=== PATIENT | female | born 1960 | race African-American/Black ===

== ENCOUNTER 2020-11-29 05:40 | Emergency (ER) | payer MEDICARE, MEDICAID ==
[~2020-11-29] VITALS: Ht 160 cm; Wt 97.1 kg
[2020-11-29] MEDS ORDERED: IOHEXOL-350 100 ML BOTTLE ONE (06:27)
[2020-11-29 06:44] LABS: BASOPHILS % 0.4 % (0.0-2.0); EOSINOPHILS % 0.2 % (0.0-5.0); HEMATOCRIT. 36.3 % (36.0-48.0); HEMOGLOBIN. 12.2 g/dL (12.0-16.0); LYMPHOCYTES % 13.8 % (20.0-50.0); MEAN CORPUSCULAR HEMOGLOBIN 28.5 pg (28.0-32.0); MEAN CORPUSCULAR VOLUME 84.4 fL (81.0-99.0); MEAN PLATELET VOLUME 10.5 fl (7.4-10.4); MONOCYTES % 4.4 % (2.0-8.0); NEUTROPHILS % 81.2 % (40.0-76.0); PLATELET 205 x1000/uL (130-400); RED CELL DISTRIBUTION WIDTH 11.9 % (11.6-14.6)
[2020-11-29 06:53] LABS: CHLORIDE 101 mEq/L (98-107)
[2020-11-29 06:56] LABS: PARTIAL THROMBOPLASTIN TIME 26.3 sec (23.4-31.0); PROTHROMBIN TIME 10.2 sec (9.6-11.0)
[2020-11-29 07:03] LABS: ETHANOL BLOOD < 10 mg/dL; LDL CHOLESTEROL 145 mg/dL (5-100)
[2020-11-29] MEDS ORDERED: ASPIRIN 325MG EC TABLET PO ONE (07:30)
[2020-11-29] MEDS ORDERED: ATORVASTATIN CALCIUM 40MG TABLET PO STA (07:52)
[2020-11-29 09:50] VITALS: BP 138/70
== END 2020-11-29 10:00 | disposition short-term general hospital (02) ==
LOC: ER 05:40 → CANBEDREQ 09:57 → ER 10:00
DX: I63.9 Cerebral infarction, unspecified (principal)
CPT/HCPCS: 36415; 70450; 70496; 70498; 71045; 80053; 80320; 82962; 83721; 84484; 85025; 85610; 85730; 93005; 99285; Q9967; G0480